=== PATIENT | female | born 1995 | race Caucasian/White ===

== ENCOUNTER 2017-04-04 15:31 | Observation (INO) | payer OTHER ==
--- NOTE | 2017-04-04 16:02 | EDPHY ---
H & P Time Seen by Provider: 04/04/17 15:53 HPI/ROS: Chief complaint. Shortness of breath, palpitation HPI. 22-year-old female presents emergency department with complaint of shortness of breath and palpitations for 1 month. She describes the palpitations as skipping beats. It seems to happen in stressful situations and can happen at night while she is sleeping or and class. It did occur once while running. She has had similar episodes previously though this seems to be increasing in frequency. Last evening she had some shortness of breath and heart racing. She does feel that she has some right-sided burning and pressure sensation. Otherwise she is not sick though she did have a GI bug 2 days ago which is now resolved. No fever. No cough. No unusual leg pain or swelling ROS Constitutional. no fever/chills, no weakness Eyes. no problems with vision ENT. no sore throat, no nasal drainage Cardiovascular. Right-sided chest pain; palpitations Respiratory. Shortness of breath Abdominal. no abdominal pain, no nausea/vomiting, no diarrhea . no problems urinating MS. no calf pain/swelling, no neck/back pain, no joint pain Skin. no rash Lymph. no swollen glands Neuro. no headache, no dizziness, no difficulty walking or with speech Past Medical/Surgical History: Past medical history patient denies significant history Social History: Single, nonsmoker, no alcohol. Patient is on control pills Smoking Status: Never smoked Physical Exam: General Appearance: Alert well-developed female mild distress vital signs are stable Eyes: Pupils equal and round no pallor or injection. ENT, Mouth: Mucous membranes are moist. Respiratory: There are no retractions, lungs are clear to auscultation. Cardiovascular: Regular rate and rhythm. Gastrointestinal: Abdomen is soft and nontender, no masses, bowel sounds normal. Neurological: Awake and alert, sensory and motor exams grossly normal. Skin: Warm and dry, no rashes. Musculoskeletal: Neck is supple nontender. Extremities symmetrical, full range of motion. Psychiatric: Patient is oriented X 3, there is no agitation. Constitutional: Initial Vital Signs Temperature (C) 36.7 C 04/04/17 15:35 Heart Rate 76 04/04/17 15:35 Respiratory Rate 18 04/04/17 15:35 Blood Pressure 139/94 H 04/04/17 15:35 O2 Sat (%) 98 04/04/17 15:35 O2 Delivery Mode Room Air Allergies/Adverse Reactions: No Known Allergies Allergy (Unverified 04/04/17 15:34) Home Medications: Medication Instructions Recorded Norgestimate-Ethinyl Estradiol 04/04/17 Medical Decision Making - Diagnostics EKG Interpretation: EKG interpreted by me shows normal sinus rhythm with normal interval and axis. QRS is normal there is no significant ST elevation or depression. There is no arrhythmia. The rate is 75 Imaging Results: Imaging Impressions Chest X-Ray 04/04/17 16:22 Impression: Negative chest. Procedures: IV normal saline, monitor ED Course/Re-evaluation: Re-evaluation at 6:00 p.m.. Patient is stable. The patient, her dad, and I discussed imaging EKG and lab results. We discussed treatment plan including recommendation for admission. They expressed understanding and agreement I consulted discussed case with Dr. sheri shah, hospitalist will see the patient in the emergency department I consulted and discussed the case with Dr. Franco, cardiology who will also see the patient in consultation. He agrees with treatment plan of me ordering echocardiogram and serial troponins. Differential Diagnosis: I considered pulmonary embolus. I also considered acute coronary syndrome and patient has a markedly elevated troponin. I suspect the patient had some type of rapid arrhythmia that cause some heart muscle injury or damage. - Data Points Laboratory Results: Laboratory Results 04/04/17 16:45 04/04/17 16:45 04/04/17 04/04/17 04/04/17 16:45 16:45 16:45 WBC RBC Hgb Hct MCV MCH MCHC RDW Plt Count MPV Neut % (Auto) Lymph % (Auto) [place] % (Auto) Eos % (Auto) Baso % (Auto) Nucleat RBC Rel Count Absolute Neuts (auto) Absolute Lymphs (auto) Absolute Monos (auto) Absolute Eos (auto) Absolute Basos (auto) Absolute Nucleated RBC Immature Gran % Immature Gran # D-Dimer < 0.27 ug/mLFEU ug/mLFEU (0.00-0.50) Sodium 142 mEq/L mEq/L (134-144) Potassium 3.7 mEq/L mEq/L (3.5-5.2) Chloride 105 mEq/L mEq/L (97-110) Carbon Dioxide 27 mEq/l mEq/l (22-31) Anion Gap 10 mEq/L mEq/L (8-16) BUN 8 mg/dL mg/dL (7-23) Creatinine 0.8 mg/dL mg/dL (0.6-1.0) Estimated GFR > 60 Glucose 78 mg/dL mg/dL (70-100) Calcium 9.3 mg/dL mg/dL (8.5-10.4) Troponin I 0.459 ng/mL H ng/mL (0.000-0.034) Beta HCG, Qual NEGATIVE 04/04/17 16:45 WBC 3.66 10^3/uL L 10^3/uL (3.80-9.50) RBC 4.75 10^6/uL 10^6/uL (4.18-5.33) Hgb 14.5 g/dL g/dL (12.6-16.3) Hct 41.1 % % (38.0-47.0) MCV 86.5 fL fL (81.5-99.8) MCH 30.5 pg pg (27.9-34.1) MCHC 35.3 g/dL g/dL (32.4-36.7) RDW 12.0 % % (11.5-15.2) Plt Count 234 10^3/uL 10^3/uL (150-400) MPV 10.0 fL fL (8.7-11.7) Neut % (Auto) 42.8 % % (39.3-74.2) Lymph % (Auto) 39.1 % % (15.0-45.0) [place] % (Auto) 16.7 % H % (4.5-13.0) Eos % (Auto) 0.8 % % (0.6-7.6) Baso % (Auto) 0.3 % % (0.3-1.7) Nucleat RBC Rel Count 0.0 % % (0.0-0.2) Absolute Neuts (auto) 1.57 10^3/uL L 10^3/uL (1.70-6.50) Absolute Lymphs (auto) 1.43 10^3/uL 10^3/uL (1.00-3.00) Absolute Monos (auto) 0.61 10^3/uL 10^3/uL (0.30-0.80) Absolute Eos (auto) 0.03 10^3/uL 10^3/uL (0.03-0.40) Absolute Basos (auto) 0.01 10^3/uL L 10^3/uL (0.02-0.10) Absolute Nucleated RBC 0.00 10^3/uL 10^3/uL (0-0.01) Immature Gran % 0.3 % % (0.0-1.1) Immature Gran # 0.01 10^3/uL 10^3/uL (0.00-0.10) D-Dimer Sodium Potassium Chloride Carbon Dioxide Anion Gap BUN Creatinine Estimated GFR Glucose Calcium Troponin I Beta HCG, Qual Departure - Departure Disposition: [facility] Inpatient Acute Clinical Impression: Elevated troponin Chest pain Qualifiers: Chest pain type: unspecified Qualified Code(s): R07.9 - Chest pain, unspecified Condition: Good Referrals: LANDIN,UNKNOWN [Other] - As per Instructions
--- NOTE | 2017-04-04 16:04 | CPEKG ---
Heart Rate: 75 RR Interval: 800 P-R Interval: 180 QRSD Interval: 78 QT Interval: 380 QTC Interval: 425 P [place]: 58 QRS [place]: 86 T Wave [place]: 44 EKG Severity - NORMAL ECG - EKG Impression: SINUS RHYTHM Electronically Signed By: Kulwinder Solitario 04-Apr-2017 19:12:22
[2017-04-04 16:59] LABS: % IMMATURE GRANULYOCYTES 0.3 % (0.0-1.1); ABSOLUTE IMMATURE GRANULOCYTES 0.01 10^3/uL (0.00-0.10); ADD DIFF? NO; ADD MORPH? NO; ADD SCAN? NO; ATYPICAL LYMPHOCYTE FLAG 20 (0-99); FRAGMENT RBC FLAG 0 (0-99); HEMATOCRIT 41.1 % (38.0-47.0); HEMOGLOBIN 14.5 g/dL (12.6-16.3); LEFT SHIFT FLG 0 (0-99); LIPEMIA HEMOLYSIS FLAG 90 (0-99); MEAN CELL HEMOGLOBIN 30.5 pg (27.9-34.1); MEAN CELL HEMOGLOBIN CONCENTR. 35.3 g/dL (32.4-36.7); MEAN CELL VOLUME 86.5 fL (81.5-99.8); PLATELET CLUMPS FLAG 0 (0-99); PLATELET COUNT 234 10^3/uL (150-400); RED BLOOD CELL COUNT 4.75 10^6/uL (4.18-5.33)
[2017-04-04 17:09] LABS: ANION GAP 10 mEq/L (8-16); CALCIUM 9.3 mg/dL (8.5-10.4); CARBON DIOXIDE 27 mEq/l (22-31); CHLORIDE 105 mEq/L (97-110); CREATININE 0.8 mg/dL (0.6-1.0); GLOMERULAR FILTRATION RATE > 60; GLUCOSE 78 mg/dL (70-100); POTASSIUM 3.7 mEq/L (3.5-5.2); SODIUM 142 mEq/L (134-144)
[2017-04-04 17:21] LABS: TROPONIN I 0.459 ng/mL (0.000-0.034)
--- NOTE | 2017-04-04 20:46 | GHP ---
[f rep st] HISTORY AND PHYSICAL DATE OF ADMISSION: 04/04/2017 CHIEF COMPLAINT: Palpitations. HISTORY OF PRESENT ILLNESS: A 22-year-old female with a history of anxiety that does not require medications, presenting with approximately 4 weeks of intermittent palpitations and shortness of breath. She first noticed this around Thanksgiving which lasted 2-3 days and seemed to come and go quite suddenly. She presents today after symptoms recurred last night, seemed to last all night. She reports unable to get a satisfying breath despite breathing very deeply, positive racing heartbeat, no obvious irregularity. She was seen by Urgent Care who sent her to the hospital. She admits to some family stress, as well as some educational stress. She is in the middle of s week. She denies visual changes. Previously had lightheadedness but does not have it now. Denies chest pain, swelling, diarrhea, or other symptoms. She does have a strange discomfort that feels like tingling in her upper chest just under both clavicles bilaterally. ROS: No, FANG, visual changes, rhinorrhea, hearing changes, nausea, vomiting, diarrhea, constipation, new numbness, weakness, bruising, bleeding, new allergies, rash or other new symptoms except as noted above. PAST MEDICAL HISTORY: Superficial anxiety, no medications required. PAST SURGICAL HISTORY: [place]div[place] teeth removal. FAMILY HISTORY: Grandfather with heart disease in old age, otherwise healthy parents and siblings. SOCIAL HISTORY: [employer] student, lives in an apartment, sexually active with her boyfriend who is at the bedside. Denies any alcohol, drug use. Specifically asked her about cocaine, heroin, stimulants-- She flat out denies them. She has taken biotin recently for hair and nails but no other supplementation. MEDICATIONS: She takes OCPs and p.r.n. NSAIDs if she has a headache but nothing recent. ALLERGIES: None. PHYSICAL EXAM: VITAL SIGNS: 122/75, 16, 97% on RA, heart rate 81, normal sinus on telemetry. GENERAL: Pleasant, no acute distress, alert, appropriate, pleasant. HEENT: Pupils equal and reactive, approximately 3 mm and appropriate. NECK: No cervical lymphadenopathy. Positive thyroid fullness. No nodules. No JVD. CARDIOVASCULAR: Regular rate and rhythm, no murmurs. Normal S1, S2. RESPIRATORY: CTA bilaterally. ABDOMEN: Soft, nontender. EXTREMITIES: No lower extremity edema. SKIN: No rashes. NEURO: A&O x3, appropriate, moving all extremities. DATA: Labs: White blood cells 3.6, no anemia, platelets 234. D-dimer negative (less than 0.27). Electrolytes normal. Creatinine 0.8. Beta hCG negative. Troponin-I elevated at 0.459 (normal range 0-0.34). EKG, personally reviewed: Normal sinus rhythm. No ST- or T-wave changes. Chest x-ray, personally reviewed: Normal. ASSESSMENT: A 22-year-old female with past medical history notable only for mild anxiety, presenting with anxiety with intermittent symptoms of palpitations and shortness of breath since Thanksgi. On evaluation by ER found to have positive troponin of 0.4, with normal EKG. Unclear diagnosis, but at this time patient does have stressful triggers including school and family. She flat out denies any kind of illicit substances , even when in the room by herself. She is able to fully exert herself recently without any shortness of breath. Symptoms have been nonexertional. Possible cardiomyopathy related to thyroid given fullness or may be related to Takotsubo's. Will await echocardiogram findings and consult Cardiology. PLAN: SOB: Elevated troponin. Awaiting echo. Cardiology eval has been called with Dr. Franco. Repeat troponins after 8 hours. Check a CK and CK-MB. Repeat BMP. Normal diet until noted. No IV anticoag at this time. Anxiety: Patient seems calm and collected in the room. No p.r.n.'s unless called for. Given patient's recent abnormal symptoms and weird labs we do not want to be checking these without further eval. Contraception: Continue home OCPs. Full code. Her healthcare proxy of choice is Aunt. Admit to Hospital Medicine, PCU. Eval with Cardiology. Dispo pending findings. Copy requested to: Dr. Gaitan [facility] [place], [place] /[id number]/MODL MTDD
--- NOTE | 2017-04-05 05:03 | PDMN ---
Medical Necessity Medical necessity: C/M review: Patient meets INPT crtieria under MCG M-89 Chest pain; Acute and persistent palpitations, shortness of breath, elevated troponin 0.459 requiring planned Cardiology consult, ongoing cardiac monitoring , comorbid history of anxiety. MD anticipates > 2 MN LOS for ongoing med nec for eval and TX of above.
[2017-04-05 07:33] LABS: ANION GAP 12 mEq/L (8-16); CALCIUM 9.1 mg/dL (8.5-10.4); CARBON DIOXIDE 24 mEq/l (22-31); CHLORIDE 105 mEq/L (97-110); CREATININE 0.8 mg/dL (0.6-1.0); GLOMERULAR FILTRATION RATE > 60; GLUCOSE 91 mg/dL (70-100); MAGNESIUM 1.9 mg/dL (1.6-2.3); POTASSIUM 4.1 mEq/L (3.5-5.2); SODIUM 141 mEq/L (134-144)
[2017-04-05 07:44] LABS: TROPONIN I < 0.012 ng/mL (0.000-0.034)
[2017-04-05] MEDS ORDERED: NORGESTIMATE ETHINYL ESTRADIOL PO SCH (09:00)
[2017-04-05] MEDS ORDERED: [UNRECOGNIZED DRUG - OTHER] PO SCH (09:00)
[2017-04-05 09:29] VITALS: RESP 18
--- NOTE | 2017-04-05 09:35 | ECHO ---
[email or web address] [address] [address] Main: [phone] Fax: Transthoracic Echocardiogram Name: TEE CARMEN MR#: [id number] Study Date: 04/04/2017 Study Time: 06:46 PM Date of : 1995 Age: 22 year(s) Height: 170.2 cm (67 in.) Weight: 61.24 kg (135 lb.) BSA: 1.71 m2 Gender: Female Examination: Echo Indication: Chest Pain Image Quality: Adequate Contrast: Requested by: Kulwinder Solitario BP: 122 mmHg/75 mmHg Heart Rate: Rhythm: Indication: Chest Pain Procedure Staff Plate Glass Grinder: Briana Yu Reading Physician: Ryley Pierre Requesting Provider: Nelly Vasques Conclusions: Normal size left ventricle. No LV hypertrophy. Normal global systolic LV function. EF is 66 %. There is no mitral valve regurgitation. The aortic valve is normal in appearance and function. There is no significant tricuspid valve regurgitation. Trivial pulmonic valve regurgitation. Measurements: Chambers Valvular Assessment AV/MV Valvular Assessment TV/PV Normal Normal Normal Name Value Range Name Value Range Name Value Range IVSd (2D): 0.9 cm (0.6 cm-1.1 AV Vmax: 1.09 m/s (1 m/s-1.7 PV Vmax: 0.99 m/s (0.6 m/s-0.9 cm) m/s) m/s) LVDd (2D): 3.6 cm (3.9 cm-5.3 AV maxP mmHg ( - ) PV PGmax: 4 mmHg ( - ) cm) AV meanP mmHg ( - ) LVDs (2D): 2.6 cm (2.1 cm-4 LVOT Vmax: 0.96 m/s (0.7 m/s-1.1 cm) m/s) LVPWd (2D): 0.9 cm ( - ) MV E Vmax: 0.59 m/s ( - ) LVEF (BP): 66 % (>=55 %) MV A Vmax: 0.32 m/s ( - ) MV E/A: 1.84 ( - ) Continued Measurements: Chambers Valvular Assessment AV/MV Name Value Name Value LADs Lon.2 cm MV DecTime: 299 m/s LA Area: 9.3 cm2 MV E/E' Septal: 6.50 Patient: TEE CARMEN Study Date: 04/04/2017 Page 1 of 2 06:46 PM LA Volume: 21 ml MV E/E' Lateral: 3.50 LA Volume Index: 12.3 ml/m2 TAPSE: 1.5 cm Additional Vessels Name Value Inferior Vena Cava: 1.5 cm Findings: Left Ventricle: Normal size left ventricle. No LV hypertrophy. Normal global systolic LV function. EF is 66 %. No regional wall motion abnormality. Right Ventricle: Normal size right ventricle. Normal RV function. Left Atrium: The left atrium is normal in size. Right Atrium: The right atrium is normal in size. Mitral Valve: The mitral valve is normal in appearance and function. There is no mitral valve regurgitation. No mitral stenosis is present. Aortic Valve: The aortic valve is normal in appearance and function. Tricuspid Valve: The tricuspid valve is normal in appearance and function. There is no significant tricuspid valve regurgitation. Pulmonic Valve: Pulmonary valve not well visualized. Trivial pulmonic valve regurgitation. IVC: There is greater na 50% respiratory excursion. Pericardium: No pericardial effusion. (No Signature Object) Patient: TEE CARMEN Study Date: 04/04/2017 Page 2 of 2 06:46 PM [id number]
[2017-04-05] MEDS ORDERED: FLU VACC QS 2017-18 (3YR+)/PF 0.5 ML SYR (FLUARIX QUAD) IM ONE (09:40)
--- NOTE | 2017-04-05 12:23 | GCON ---
[f rep st] CONSULTATION CARDIOLOGY CONSULTATION DATE OF CONSULTATION: 04/05/2017 REFERRING PHYSICIAN: Ayesha Lagos MD REASON FOR CONSULTATION: Palpitations and elevated troponin. HISTORY: The patient is a 22-year-old female with a history of anxiety who presents with sensations of an irregular heart rhythm over the past few weeks. It does not sound as if she has had sustained rapid palpitations during the daytime, but has awakened at nighttime with what seemed to be a rapid h eart rate. She has not had any chest discomfort, lightheadedness, or near syncope. She has not had any signs of fluid retention. She has been under stress with her studies and semester final exams. Because of persistent symptoms, she presented to the emergency room for evaluation. Her physical exa mination and ECG were unremarkable. However, her initial troponin was mildly elevated at 0.459. Sub sequent levels have come back at less than 0.012. PAST MEDICAL HISTORY: She has no ongoing medical issues. PAST SURGICAL HISTORY: Extraction of her wisdom teeth. FAMILY HISTORY: Noncontributory. MEDICATIONS: Her only regular medication is control. ALLERGIES: No known drug allergies. SOCIAL HISTORY: She is a college student. She has a steady boyfriend. She has no offspring. She d oes not smoke or consume excessive amounts of alcohol. She engages in regular exercise. REVIEW OF SYSTEMS: Apart from what was mentioned in the History of Present Illness, a 10-point revie w was negative. PHYSICAL EXAMINATION: VITAL SIGNS: Heart rate in the 70s with sinus rhythm on the monitor. Blood p ressure 124/80. O2 saturation 99% on room air. HEAD AND NECK: No scleral icterus. Mucous membrane s moist. Carotid pulses 2+ without bruits. There is no JVD. CHEST: Lung rocha clear to auscultat ion. CARDIAC: Regular rate and rhythm with a normal S1, S2. There is no murmur or gallop. ABDOMEN : Soft, nontender, nondistended, with normal bowel sounds. EXTREMITIES: 2+ pulses and no periphera l edema. LABORATORY STUDIES: Troponin levels as mentioned previously. Sodium 141, potassium 4.1, BUN and cre atinine 12 and 0.8. TSH is normal at 2.87. Her CBC demonstrates a white blood cell count of 3.66 wi th hemoglobin and hematocrit of 14.5 and 41.1. Platelet count 234,000. ECG: Her ECG demonstrates normal sinus rhythm. There are no Q-waves or conduction system disturbanc es. There are no ischemic changes. ECHOCARDIOGRAM: Her echocardiogram demonstrates normal left ventricular size. Ejection fraction 66% . She has normal appearing valvular structures with only trivial pulmonic regurgitation. There is n o pericardial effusion. IMPRESSION: This is a 22-year-old woman who has a tendency to anxiety. She has noted irregular hear t beats over the past several weeks as she was preparing for final exams. She has not been consuming any significant amounts of caffeine. Her thyroid status is normal. On telemetry over night, she archer d rare premature ventricular contractions. This may be what she has experienced as an outpatient. S he has a normal ECG, normal physical exam, and a structurally normal heart on echocardiography. Her initial troponin was mildly elevated. Two subsequent troponins have been completely normal with virtually undetectable troponin level. In my mind, this raises questions about her first test result . Certainly, she should not be at risk for a coronary ischemic event. If there had been some other insult to the myocardium, such as pericarditis or myocarditis, I would not have expected her troponin to decline so precipitously. RECOMMENDATIONS: No further cardiac testing is indicated at this time. I had a long discussion with the patient, her father, and her boyfriend regarding the nature of PVCs. I also stressed that there is no indication to treat these unless they become frequent and bothersome. /[id number]/MODL
[2017-04-05 12:51] VITALS: BP 118/72; PULSE 63; TEMP 98.2; O2SAT 98
--- NOTE | 2017-04-05 13:31 | PDDCSUM ---
Discharge Summary Discharge Summary: 22 yo female who presented with palpitations. She had slight isolated troponin and was admitted. she did not have chest pain. w/u showed normal TTE, NSR on EKG with no ischemia or concerning findings, D-Dimer normal, CXR normal, TSH normal. She was monitored overnight with no events on telemetry. Cards consulted. Repeat troponin x 2 were normal. It was felt by cardiology that the trop elevation was likely a lab error given that the repeats were normal. She was noted to have rare PVC's on tele She has been cleared for d/c by cards. no further interventions. if sx's continue, she can f/u with them ddx: -indeterminate troponin -palpitations -pvc's Exam: NAD AAOX3 RRR CTA B S/NT/ND NO LE EDEMA MEDS: NO MEDS PRESCRIBED F/U WITH CARDS IS SX'S PERSIST TOTAL TIME SPENT ON DISCHARGE IS 35 MINS
--- NOTE | 2017-04-05 16:37 | ASDISCHSUM ---
Discharge Information Plan Status:Home with No Needs Medically Cleared to Leave:04/04/2017 Discharge Date:04/05/2017 01:45 PM CM D/C Disposition:Home, Routine, Self-Care ADT D/C Disposition:Home, Routine, Self-Care Projected Discharge Date:04/05/2017 12:00 AM Transportation at D/C:Friend Discharge Delay Reason: Follow-Up Date:04/05/2017 12:00 AM Discharge Slot: Final Diagnosis:Palpitations, anxiety Placement Information Patient Contact Information Contact Name:PATIENCE Relationship:Mother Address: Work Phone: City: [facility] Phone: [facility] Code: Email: Financial Information Financial Class:HMO and PPO Plans Primary Plan Desc:[employer] Primary Plan Number:[id number] Secondary Plan Desc: Secondary Plan Number: Assessment Information Case Management Discharge Plan Note Case Management Discharge Discharge Order Complete? Answers: Yes Patient to Obtain Answers: Independently Medications Transportation Arranged Answers: Family/Friends Transport will Pick (Date 04/05/2017 12:00 AM & Time) Discharge Comments Notes: 22 yaer old student admitted for palpiattions, anxiety. Had cardiac work-up. No more needs at this time. Discharged. Date Signed: 04/05/2017 04:36 PM Electronically Signed By:Kiara Almaraz LCSW Intervention Information
== END 2017-04-05 13:45 | disposition home or self-care (01) ==
LOC: INTOOBSV 18:11 → F2W 19:54
PROVIDERS: ADMIT Internal Medicine Geriatric Medicine; ATTEND Internal Medicine Geriatric Medicine
DX: R00.2 Palpitations (principal); R06.02 Shortness of breath
CPT/HCPCS: 71010; 90471; 93005; 93306; G0378; G0008